=== PATIENT | male | born 1970 | race Caucasian/White ===

== ENCOUNTER 2016-11-18 11:07 | Observation (INO) | payer OTHER ==
--- NOTE | ~2016-11-18 | CR127 ---
[facility] A Service of [facility] & [facility] RADIOLOGY TEXT RESULTS PATIENT: NELSY LOZANO LOCATION: [facility] [id number] : [birth year] UNIT #: [id number] AGE: [address]: ADALGISA CRALISLE MD SEX: M ORDER DR: [id number] [address] [place], [place] [address] [id number] MR#: [id number] Acc #: [id number] NAME: NELSY LOZANO : 1970 SEX: M STUDY DATE/TIME: 11/18/2016 10:40 UNIT: [facility] ROOM: STUDY DESCRIPTION: CR Foot Complete Min 3 View Rt Attending Physician: Darion Keller M.D. Ordering Physician: Ed Doctor [id number] [facility] Primary Care Physician: Primary Care Physician No MEDICAL IMAGING REPORT This report is preliminary unless electronic signature is present EXAM Right foot, 11/18/2016 INDICATION 45-year-old male complaining of pain and swelling in the right foot for a week, infection, but no known injury. TECHNIQUE 3 views right foot. COMPARISON No comparisons. FINDINGS There is mild dorsal soft tissue swelling. No acute fracture. No retained opaque foreign body. No focal erosive changes. IMPRESSION Nonspecific soft tissue swelling. This may reflect cellulitis. No acute fracture. Dictated by... Guanako Orozco M.D. THIS IS AN ELECTRONICALLY VERIFIED REPORT Guanako Orozco M.D. at 11/18/2016 3:43 PM Bhumi TD: 11/18/2016 12:07 JOB #: [id number] MEDICAL IMAGING REPORT COPY
--- NOTE | ~2016-11-18 | HP ---
Unit #: [id number] #: [id number] Patient: NELSY LOZANO [id number] [address] [place], [place] [address] [id number] MR#: [id number] NAME: NELSY LOZANO ROOM: Age: 45 Sex: M Admission Date: 11/18/2016 : 1970 Attending Physician: Darion Keller M.D. Primary Care Physician: No Primary Care Physician HISTORY AND PHYSICAL CHIEF COMPLAINT Right lower extremity injury. HISTORY OF PRESENT ILLNESS The patient is a 45-year-old male with a long history of illicit substance abuse to include IV methamphetamine and high benign prostatic hypertrophy, presented to the emergency room with a right lower extremity injury. The patient stated that he stepped on a nail last Tuesday and started feeling pain since Tuesday. The patient stated the pain is so severe that he cannot take it anymore so presented to the emergency room. Denies any fever, chills, nausea or vomiting. Denies any drainage from the wound. The patient is being admitted for the above reasons. PAST MEDICAL HISTORY 1. History of a longstanding history of substance abuse to include IV methamphetamine. 2. High blood pressure. PAST SURGICAL HISTORY Left leg surgery. ALLERGIES No known drug allergies. HOME MEDICATIONS None. SOCIAL HISTORY Smokes one pack per day, drinks alcohol on occasion. Admits to long history of illicit substance abuse including IV heroin and IV methamphetamine. FAMILY HISTORY Reviewed and none. REVIEW OF SYSTEMS Fourteen point review of systems was performed and only pertinent positive findings are described above, remaining are negative. PHYSICAL EXAMINATION GENERAL: The patient is lying on the bed, not in acute distress. VITALS: Temperature 97.8, pulse 99, respiratory rate 16, blood pressure 145/99, sat'ing 100% at room air. Unit #: [id number] #: [id number] Patient: NELSY LOZANO HEAD: Atraumatic, normocephalic. EENT: Pupils equal, round, reactive to light and accommodation. Extraocular movements are intact. NECK: Supple. No JVD. LUNGS: Clear to auscultation bilaterally. No rhonchi, no wheezing. HEART: Regular rate and rhythm. ABDOMEN: Soft. Positive bowel sounds. EXTREMITIES: There is minimal erythema of the dorsum of the right foot at the site of the fifth toe. There is no open wound. Tender to touch. NEURO: Alert, awake, oriented. No gross focal motor deficit. DIAGNOSTIC STUDIES LABORATORY: Glucose 115, BUN 11, creatinine 0.8, sodium 137, potassium 4.4, chloride 100, bicarb 29, calcium 9.1, total protein 6.9, AST 26, ALT 31, alkaline phosphatase 72, lactic acid is 1.1. WBC 7.7, hemoglobin 13.9, hematocrit 41.3, platelets 283. IMAGING: X-ray of the foot shows nonspecific soft tissue swelling. This may reflect cellulitis. No acute fracture seen. ASSESSMENT AND PLAN 1. Cellulitis. 2. Status post stepped on a nail. 3. Hypertension. Plan is to admit patient in observation to telemetry. Continue IV antibiotics with pseudomonas coverage with cefepime. Check ESR and CRP and repeat the labs again in the morning. Further recommendations will follow. Dictated by Clemente Weeks TD: 11/18/2016 13:07 JOB #: [id number] HISTORY AND PHYSICAL X X HISTORY AND PHYSICAL
--- NOTE | ~2016-11-18 | DS ---
Unit #: [id number] #: [id number] Patient: NELSY LOZANO [id number] [address] [address] [id number] I MR#: [id number] NAME: NELSY LOZANO ROOM: 201 Age: 46 Sex: M Admission Date: 11/18/2016 : 1970 Discharge Date: 11/21/2016 Attending Physician: Aleida Lozoya M.D. DISCHARGE SUMMARY FINAL DIAGNOSIS Right foot cellulitis. SECONDARY DIAGNOSIS High blood pressure. CONSULTS None. HOSPITAL COURSE The patient is a pleasant 45-year-old male who was admitted for right foot cellulitis. He was started on cefepime, and he improved clinically. He was evaluated and is suitable and stable for discharge and will be discharged in stable condition. He did stop on a nail, hence the origin of the cellulitis of the foot. He has received a tetanus toxoid injection during this hospitalization. DISCHARGE MEDICATIONS Will discharge him home on doxycycline 100 mg p.o. b.i.d. for seven days and Ceftin 500 mg p.o. b.i.d. for seven days. FOLLOWUP He is scheduled to follow up with Dr. Landon in the office at 1 p.m. on November 23, 2016. Patient is to call [phone] to confirm his appointment. Dictated by... Clemente Mariscal/ashlyn TD: 11/21/2016 14:52 JOB #: [id number] DISCHARGE SUMMARY X Lakisha Montiel MD X DISCHARGE SUMMARY
[~2016-11-18 11:07] MED LIST: BACTRIM DS TABL1 TA1 PO; KEFLEX PO; ROBITUSSIN A-C S5 ML PO; VIBRAMYCIN100 M1 PO; VOLTAREN75 MG PO
[2016-11-18 11:18] LABS: BASOPHIL# 0.1 X10e3 (0-0.3); BASOPHIL% 0.7 % (0-2.5); EOSINOPHIL# 0.2 X10e3 (0-0.7); EOSINOPHIL% 2.9 % (0.0-7.0); HEMATOCRIT 41.3 % (38.0-50.0); HEMOGLOBIN 13.9 gm/dL (13.0-16.0); LYMPHOCYTE# 1.3 X10e3 (1.0-3.5); LYMPHOCYTE% 17.2 % (17.0-45.0); MEAN CELL VOLUME 86.6 FL (83-96); MEAN CORPUSCULAR HEMOGLOBIN 29.1 PG (28-34); MEAN CORPUSCULAR HGB CONC 33.6 g/dL (30-36); MEAN PLATELET VOLUME 8.3 FL (6.5-11.5); MONOCYTE# 0.6 X10e3 (0-1.0); MONOCYTE% 7.4 % (3.0-12.0); NEUTROPHIL# 5.6 X10e3 (1.5-7.1); NEUTROPHIL% 71.8 % (40-75); PLATELET COUNT 283 X10e3 (140-420); RED BLOOD COUNT 4.77 X10e (3.90-5.60); RED CELL DISTRIBUTION WIDTH 12.8 % (11.0-15.5); WHITE BLOOD COUNT 7.7 X10e3 (4.0-10.5)
[2016-11-18 11:19] LABS: DIFF IND NO
[2016-11-18 11:47] LABS: ALBUMIN SERUM 3.6 g/dL (3.5-5.0); ALKALINE PHOSPHATASE 72 U/L (32-92); ALT (SGPT) 31 U/L (10-40); AST (SGOT) 26 U/L (10-42); BILIRUBIN,TOTAL 0.4 mg/dL (0.2-2.0); BLOOD UREA NITROGEN 11 mg/dL (9-23); BUN/CREATININE RATIO 13.75; CALCIUM SERUM 9.1 mg/dL (8.4-10.2); CARBON DIOXIDE 29 mmol/L (22-31); CHLORIDE 100 mmol/L (100-111); CREATININE SERUM 0.8 mg/dL (0.6-1.4); GLOM FILT RATE Estimated ABOVE60 mL/min (>60); GLUCOSE FASTING 115 mg/dL (70-110); POTASSIUM 4.4 mmol/L (3.5-5.1); PROTEIN TOTAL SERUM 6.9 g/dL (6.0-8.3); SODIUM 137 mmol/L (135-145)
[2016-11-18] MEDS ORDERED: NO MEDICATIONS (12:57)
[2016-11-19 06:12] LABS: HEMOGLOBIN 13.9 gm/dL (13.0-16.0); MEAN CELL VOLUME 86.7 FL (83-96); MEAN CORPUSCULAR HEMOGLOBIN 28.7 PG (28-34); MEAN CORPUSCULAR HGB CONC 33.1 g/dL (30-36); MEAN PLATELET VOLUME 8.5 FL (6.5-11.5); RED BLOOD COUNT 4.85 X10e (3.90-5.60); WHITE BLOOD COUNT 5.7 X10e3 (4.0-10.5)
[2016-11-19 06:36] LABS: BLOOD UREA NITROGEN 9 mg/dL (9-23); BUN/CREATININE RATIO 12.85; CARBON DIOXIDE 28 mmol/L (22-31); CHLORIDE 104 mmol/L (100-111); CREATININE SERUM 0.7 mg/dL (0.6-1.4); GLOM FILT RATE Estimated ABOVE60 mL/min (>60); GLUCOSE FASTING 84 mg/dL (70-110); POTASSIUM 4.3 mmol/L (3.5-5.1); SODIUM 139 mmol/L (135-145)
[2016-11-21] MEDS ORDERED: DOXYCYCLINE HY100 M3 PO (13:12)
[2016-11-21] MEDS ORDERED: CEFTIN500 MG PO (13:13)
== END 2016-11-21 14:48 | disposition home or self-care (01) ==
LOC: CED 11:07 → CEDOF 12:49 → C5B 14:18 → C2A 11-19 14:49
PROVIDERS: Emergency Medicine; Internal Medicine
DX: L03.115 Cellulitis of right lower limb (principal); W22.09XA Striking against other stationary object, initial encounter; Z23 Encounter for immunization; I10 Essential (primary) hypertension; F17.200 Nicotine dependence, unspecified, uncomplicated; Z87.898 Personal history of other specified conditions
CPT/HCPCS: 36415; 73630; 80048; 80053; 83605; 85025; 85027; 85652; 86140; 87040; 90715; 94760; 96365; 96367; 96372; 96374; 96375; 96376; 99285; G0378; J0692; J1650; J2543; J3370